=== PATIENT | female | born 1975 | race Caucasian/White ===

== ENCOUNTER 2017-12-26 17:02 | Emergency (ER) | payer OTHER ==
[~2017-12-26] VITALS: Ht 167.6 cm; Wt 63.6 kg
[~2017-12-26 17:02] MED LIST: BACTRIM,SEPT1 TABLE1 PO; FLONASE16 GM NS; PROTONIX40 MG PO; TYLENOL WITH C1 EACH PO; ULTRAM50 MG PO; VALIUM10 MG PO
[2017-12-26] MEDS ORDERED: PREDNISONE20 MG PO (19:26)
[2017-12-26 19:57] VITALS: BP 109/69
== END 2017-12-26 19:58 | disposition home or self-care (01) ==
LOC: EME 17:02
DX: J06.9 Acute upper respiratory infection, unspecified (principal); F17.200 Nicotine dependence, unspecified, uncomplicated
CPT/HCPCS: 71046; 93005; 94640; 99281; 99285; J7512